=== PATIENT | female | born 1940 | race Two or more races ===

== ENCOUNTER 2024-03-30 11:17 | Inpatient (IN) | payer MEDICARE ==
[~2024-03-30] VITALS: Ht 167.6 cm; Wt 88.5 kg
--- NOTE | 2024-03-30 11:30 | NUR ---
RECEIVED PT 83 YRS FEMALE WALKING IN [facility] BY FABI Valencia/O FOR BUCK TO [facility] AND GENRALIZED WEEKNESS
--- NOTE | 2024-03-30 11:40 | NUR ---
INSERTED ANG CATHETER G 20 ON LT FOR ARM BLOOD DROW AND SENT TO LAB
--- NOTE | 2024-03-30 11:50 | NUR ---
MOVE SHEET SUBMITTED & CALLED FOR BED.
--- NOTE | 2024-03-30 12:07 | NUR ---
EKG obtained at 1155.
[2024-03-30 12:14] LABS: CARBON DIOXIDE 30 mmol/L (21-32); CHLORIDE 108 mmol/L (98-107); GLUCOSE 93 mg/dL (74-106); POTASSIUM 4.4 mmol/L (3.5-5.1); SODIUM SERUM 143 mmol/L (136-145); UREA NITROGEN, BLOOD 14 mg/dL (7-18)
[2024-03-30 12:18] LABS: BASOPHILS # (AUTO) 0.3 K/uL (0.0-0.2); EOSINOPHILS # (AUTO) 0.1 K/uL (0.0-0.7); EOSINOPHILS % (AUTO) 2.6 % (0.0-6.0); HEMATOCRIT 32 % (33-45); HEMOGLOBIN 10.7 g/dL (11.5-14.8); LYMPHOCYTES # (AUTO) 1.8 K/uL (0.8-4.8); LYMPHOCYTES % (AUTO) 34.2 % (20.0-44.0); MEAN CORPUSCULAR HEMOGLOBIN 29 PG (26.0-33.0); MEAN CORPUSCULAR HGB CONC 33 g/dl (31.0-36.0); MEAN CORPUSCULAR VOLUME 88 fL (82-100); MONOCYTES # (AUTO) 0.4 K/uL (0.1-1.30); NEUTROPHILS # (AUTO) 2.7 K/uL (1.8-8.9); NEUTROPHILS % (AUTO) 50.2 % (43.0-81.0); PLATELET COUNT (AUTO) 200 K/uL (150-450); RED BLOOD CELL COUNT(AUTO) 3.64 MIL/uL (4.0-5.2); RED CELL DISTRIBUTION WIDTH 14.9 % (11.5-15.0); WHITE BLOOD COUNT (AUTO) 5.4 K/uL (4.3-11.0)
[2024-03-30] MEDS ORDERED: AMOX500C2 PO (12:39)
[2024-03-30] MEDS ORDERED: CHLO473M3 MM (12:39)
[2024-03-30] MEDS ORDERED: LOSA25TA27 PO (12:39)
[2024-03-30] MEDS ORDERED: ESCI5TAB PO (12:39)
[2024-03-30] MEDS ORDERED: OMEP40CA21 PO (12:39)
[2024-03-30] MEDS ORDERED: IBUP-1957 PO (12:39)
--- NOTE | 2024-03-30 13:06 | NUR ---
DR.BORM FISHER FOR PT HAD HERE MEDICATION FOM HOME MOTRIN 800MG AND AMOCICILLIN 500MG PG GIVEN BY FABI
--- NOTE | 2024-03-30 14:35 | NUR ---
UA SENT TO LAB
[2024-03-30 15:28] LABS: APPEARANCE,URINE CLEAR (CLEAR); BILIRUBIN,URINE NEGATIVE (NEGATIVE); BLOOD, URINE NEGATIVE Ery/uL (NEGATIVE); COLOR,URINE YELLOW (YELLOW); KETONES,URINE NEGATIVE (NEGATIVE); LEUKOCYTE ESTERASE ,URINE NEGATIVE (NEGATIVE); NITRITE, URINE NEGATIVE (NEGATIVE); PROTEIN,URINE NEGATIVE (NEGATIVE); UGLUCOSE NEGATIVE (NEGATIVE); UROBILINOGEN,URINE 0.2 EU/dL (0.2)
--- NOTE | 2024-03-30 15:41 | NUR ---
ROOM 308-1
--- NOTE | 2024-03-30 16:23 | NUR ---
HAND OFF MATT RN ROOM 308-1
[2024-03-30] MEDS ORDERED: ONDANSETRON HCL/PF 4 MG/2 ML VIAL IVP PRN (16:30)
[2024-03-30] MEDS ORDERED: MAGNESIUM HYDROXIDE 30 ML UDC PO PRN (16:30)
[2024-03-30] MEDS ORDERED: ZOLPIDEM TARTRATE 5 MG TABLET PO PRN (16:30)
[2024-03-30] MEDS ORDERED: MAG HYDROX/AL HYDROX/SIMETH 30 ML UDC PO PRN (16:30)
[2024-03-30] MEDS ORDERED: ACETAMINOPHEN 325 MG TABLET PO PRN (16:30)
[2024-03-30] MEDS ORDERED: Z GUARD REMEDY 4 OZ OINT TP PRN (16:30)
[2024-03-30 17:00] VITALS: BP 183/91; TEMP 97.9; O2SAT 96
--- NOTE | 2024-03-30 17:00 | NUR ---
TO ROOM 308-1 VIA DELBERT RUIZ VS
--- NOTE | 2024-03-30 17:30 | NUR ---
GRIND OPERATOR NOTE ADMITTED THIS 83 Y/O FEMALE PATIENT FROM ER, TRANSPORTED VIA GURNEY, ACCOMPANIED BY ER STAFF, DAUGHTER PAN AND SON JAQUELINE AT BEDSIDE. WITH ADMITTING DIAGNOSIS OF: FAILURE TO THRIVE. PATIENT IS AWAKE, A/O X1, VERBALLY RESPONSIVE AND ABLE TO MAKE NEEDS KNOWN. NO SIGNS OF ACUTE DISTRESS NOTED. ON ROOM AIR, BREATHING EVEN AND UNLABORED. DENIES ANY PAIN AT THIS TIME. NOTED WITH IV ACCESS ON LEFT FOREARM #20G, INTACT AND PATENT, FLUSHES WELL. VITAL SIGNS TAKEN AND RECORDED. ROUTINE ADMISSION CARE PROVIDED. ALL BELONGINGS ACCOUNTED FOR. SAFETY MEASURE IN PLACE. BED IN LOW AND LOCKED POSITION, SIDE RAILS UP X2, CALL LIGHT AND TABLE PLACED WITHIN EASY REACH. PLAN OF CARE ONGOING.
[2024-03-30] MEDS: hydrALAZINE HCL 25 MG TABLET PO PRN (17:57)
[2024-03-30] MEDS: ENOXAPARIN SODIUM 40 MG/0.4 ML DISP.SYRIN SQ SCH (17:58)
[2024-03-30] MEDS ORDERED: hydrALAZINE HCL 25 MG TABLET PO SCH (18:00)
--- NOTE | 2024-03-30 18:55 | NUR ---
RN CLOSING NOTE PATIENT RESTING IN BED. AWAKE. PLEASANTLY CONFUSED. STABLE ON ROOM AIR, BREATHING EVEN AND UNLABORED. DENIES ANY PAIN. IV ACCESS ON LEFT FOREARM #20G, INTACT AND PATENT, SALINE LOCKED. SAFETY MEASURE IN PLACE. BED IN LOW AND LOCKED POSITION, SIDE RAILS UP X2, CALL LIGHT PLACED WITHIN EASY REACH. WILL ENDORSE TO NEXT SHIFT FOR CONTINUITY OF CARE.
--- NOTE | 2024-03-30 19:15 | NUR ---
MS RN OPENING NOTE RECEIVED PT IN BED, A/O X 1-2, CONFUSED. ON ROOM AIR, TOLERATING WELL. NO SIGNS OF DISTRESS NOTED. WITH IV ACCESS ON LEFT FOREARM G#20, SL. SAFETY MEASURES IMPLEMENTED: BED LOCKED AND IN LOWEST POSITION, BED ALARM ON. SIDE RAILS UP, CALL LIGHT AND TABLE WITHIN EASY REACH, WILL CONTINUE PLAN OF CARE.
[2024-03-30 20:00] VITALS: BP 138/82; TEMP 98.6; O2SAT 99
[2024-03-31 06:30] LABS: BASOPHILS # (AUTO) 0.1 K/uL (0.0-0.2); EOSINOPHILS # (AUTO) 0.2 K/uL (0.0-0.7); EOSINOPHILS % (AUTO) 4.7 % (0.0-6.0); HEMATOCRIT 32 % (33-45); HEMOGLOBIN 10.5 g/dL (11.5-14.8); LYMPHOCYTES # (AUTO) 2.2 K/uL (0.8-4.8); LYMPHOCYTES % (AUTO) 42.1 % (20.0-44.0); MEAN CORPUSCULAR HEMOGLOBIN 29 PG (26.0-33.0); MEAN CORPUSCULAR HGB CONC 33 g/dl (31.0-36.0); MEAN CORPUSCULAR VOLUME 88 fL (82-100); MONOCYTES # (AUTO) 0.4 K/uL (0.1-1.30); MONOCYTES % (AUTO) 7.6 % (2.0-12.0); NEUTROPHILS # (AUTO) 2.3 K/uL (1.8-8.9); NEUTROPHILS % (AUTO) 44.6 % (43.0-81.0); PLATELET COUNT (AUTO) 201 K/uL (150-450); RED BLOOD CELL COUNT(AUTO) 3.63 MIL/uL (4.0-5.2); WHITE BLOOD COUNT (AUTO) 5.2 K/uL (4.3-11.0)
--- NOTE | 2024-03-31 06:56 | NUR ---
MS RN CLOSING NOTE PT IN BED, A/O X 1-2, CONFUSED. ON ROOM AIR, TOLERATING WELL. NO SIGNS OF DISTRESS NOTED. WITH IV ACCESS ON LEFT FOREARM G#20, SL. SAFETY MEASURES MAINTAINED: BED LOCKED AND IN LOWEST POSITION, BED ALARM ON. SIDE RAILS UP, CALL LIGHT AND TABLE WITHIN EASY REACH, WILL ENDORSE TO AM SHIFT NURSE FOR GAYE.
[2024-03-31 07:00] LABS: CALCIUM, SERUM 8.9 mg/dL (8.5-10.1); CARBON DIOXIDE 28 mmol/L (21-32); CHLORIDE 108 mmol/L (98-107); CREATININE 0.9 mg/dL (0.6-1.3); GLUCOSE 90 mg/dL (74-106); MAGNESIUM 2.1 mg/dL (1.8-2.4); PHOSPHORUS 3.8 mg/dL (2.5-4.9); POTASSIUM 3.9 mmol/L (3.5-5.1); SODIUM SERUM 142 mmol/L (136-145); UREA NITROGEN, BLOOD 12 mg/dL (7-18)
--- NOTE | 2024-03-31 07:25 | NUR ---
RN OPENING NOTES RECEIVED PATIENT IN BED, AWAKE, A/O X1, VERBALLY RESPONSIVE AND ABLE TO MAKE NEEDS KNOWN. NO SIGNS OF ACUTE DISTRESS NOTED. ON ROOM AIR, BREATHING EVEN AND UNLABORED. DENIES ANY PAIN OR DISCOMFORT AT THIS TIME. NOTED WITH IV ACCESS ON LEFT FOREARM #20G, INTACT AND PATENT, SALINE LOCKED. SAFETY MEASURE IN PLACE. BED IN LOW AND LOCKED POSITION, SIDE RAILS UP X2, CALL LIGHT AND TABLE PLACED WITHIN EASY REACH. PLAN OF CARE ONGOING.
[2024-03-31 08:00] VITALS: BP_SYST 142; BP_SYST 146; BP_DIAS 81; TEMP 98.8; O2SAT 98
[2024-03-31] MEDS: LOSARTAN POTASSIUM 25 MG TABLET PO SCH (08:15)
[2024-03-31] MEDS: CHLORHEXIDINE GLUCONATE 15 ML UDC MM SCH (08:15)
[2024-03-31] MEDS: AMOXICILLIN TRIHYDRATE 250 MG CAPSULE PO SCH (08:15)
[2024-03-31] MEDS: IBUPROFEN 400 MG TABLET PO SCH (08:15)
[2024-03-31] MEDS: ESCITALOPRAM OXALATE (10 MG) 10 MG TABLET PO SCH (08:15)
[2024-03-31] MEDS: PANTOPRAZOLE 40 MG TABLET.DR PO SCH (08:15)
[2024-03-31] MEDS ORDERED: Medication Not On Formulary EA (Omeprazole 40 MG) PO SCH (09:00)
[2024-03-31 16:00] VITALS: BP 156/89; TEMP 98.4; O2SAT 98
--- NOTE | 2024-03-31 18:43 | NUR ---
RN CLOSING NOTE PATIENT RESTING IN BED. AWAKE. WITH CONFUSION, REALITY AWARENESS PROVIDED NEEDED. NO SIGNS OF ACUTE DISTRESS NOTED. STABLE ON ROOM AIR, BREATHING EVEN AND UNLABORED. DENIED ANY PAIN. IV ACCESS ON LEFT FOREARM #20G, INTACT AND PATENT, SALINE LOCKED. ALL DUE MEDS GIVEN, TOLERATED WELL. SAFETY MEASURE MAINTAINED. BED IN LOW AND LOCKED POSITION, SIDE RAILS UP X2, CALL LIGHT PLACED WITHIN EASY REACH. WILL ENDORSE TO NEXT SHIFT FOR CONTINUITY OF CARE.
--- NOTE | 2024-03-31 19:10 | NUR ---
RN OPENING NOTE RECEIVED PATIENT AWAKE, SITTING IN BED, TALKING WITH SON OVER THE PHONE. A/O X1-2,CONFUSED. PATIENT REORIENTED/REDIRECTED NEEDED. STABLE ON ROOM AIR, RESPIRATIONS REGULAR IN RATE AND RHYTHM, NONLABORED. IV ACCESS ON LEFT FOREARM #20G, INTACT AND PATENT, SALINE LOCKED. SAFETY MEASURES MAINTAINED. BED IN LOW AND LOCKED POSITION, SIDE RAILS UP X2, CALL LIGHT PLACED WITHIN REACH.ONGOING PLAN OF CARE.
[2024-03-31 20:00] VITALS: BP 134/77; TEMP 98.2; O2SAT 95
[2024-03-31 21:34] VITALS: BP 134/77; TEMP 98.2; O2SAT 95
--- NOTE | 2024-04-01 06:39 | NUR ---
RN CLOSING NOTE PATIENT AWAKE IN BED. A/O X1-2,CONFUSED.PATIENT REORIENTED/REDIRECTED NEEDED. STABLE ON ROOM AIR, RESPIRATIONS REGULAR IN RATE AND RHYTHM, NONLABORED. IV ACCESS ON LEFT FOREARM #20G, INTACT AND PATENT, SALINE LOCKED. NEEDS ATTENDED. SAFETY MEASURES MAINTAINED. BED IN LOW AND LOCKED POSITION, SIDE RAILS UP X2, CALL LIGHT PLACED WITHIN REACH.ENDORSED TO AM SHIFT FOR GAYE.
[2024-04-01 06:43] LABS: BASOPHILS # (AUTO) 0.1 K/uL (0.0-0.2); BASOPHILS % (AUTO) 1.1 % (0.0-2.0); EOSINOPHILS # (AUTO) 0.2 K/uL (0.0-0.7); EOSINOPHILS % (AUTO) 4.1 % (0.0-6.0); HEMATOCRIT 33 % (33-45); LYMPHOCYTES # (AUTO) 1.8 K/uL (0.8-4.8); LYMPHOCYTES % (AUTO) 32.9 % (20.0-44.0); MEAN CORPUSCULAR HEMOGLOBIN 29 PG (26.0-33.0); MEAN CORPUSCULAR HGB CONC 34 g/dl (31.0-36.0); MEAN CORPUSCULAR VOLUME 88 fL (82-100); MONOCYTES # (AUTO) 0.5 K/uL (0.1-1.30); MONOCYTES % (AUTO) 8.9 % (2.0-12.0); NEUTROPHILS # (AUTO) 2.8 K/uL (1.8-8.9); PLATELET COUNT (AUTO) 218 K/uL (150-450); RED BLOOD CELL COUNT(AUTO) 3.75 MIL/uL (4.0-5.2); WHITE BLOOD COUNT (AUTO) 5.4 K/uL (4.3-11.0)
[2024-04-01 06:56] LABS: CALCIUM, SERUM 9.2 mg/dL (8.5-10.1); CARBON DIOXIDE 28 mmol/L (21-32); CHLORIDE 110 mmol/L (98-107); GLUCOSE 96 mg/dL (74-106); MAGNESIUM 2.4 mg/dL (1.8-2.4); PHOSPHORUS 4.7 mg/dL (2.5-4.9); POTASSIUM 4.4 mmol/L (3.5-5.1); SODIUM SERUM 146 mmol/L (136-145); UREA NITROGEN, BLOOD 27 mg/dL (7-18)
--- NOTE | 2024-04-01 07:09 | NUR ---
MS RN OPENING NOTES RECEIVED PATIENT IN HER ROOM AND WALKING AROUND HER BED. A/O X1-2- CONFUSED AND FORGETFUL. ABLE TO MAKE NEEDS KNOWN. ON ROOM AIR, TOLERATING WELL. NO SOB, BREATHING EVEN AND UNLABORED. WITH IV ACCESS ON LEFT FOREARM #20G-SALINE LOCKED; INTACT , PATENT AND FLUSHES WELL. PATIENT IS BRP. PROVIDED RE-ORIENTATION DURING INITIAL ENCOUNTER PATIENT SAID "CAN I GO UPSTAIRS ?". PATIENT DENIES PAIN AT THIS TIME. SAFETY MEASURES IN PLACE. BED IN LOW AND LOCKED POSITION. CALL LIGHT AND TABLE WITHIN EASY REACH. SIDE RAILS UP X2. WILL CONTINUE WITH PLAN OF CARE.
[2024-04-01 08:00] VITALS: BP 167/89; TEMP 98.4; O2SAT 95
[2024-04-01 08:25] VITALS: BP 167/89; TEMP 98.4; O2SAT 96
[2024-04-01 09:00] VITALS: BP 142/84
--- NOTE | 2024-04-01 16:05 | NUR ---
RN NOTE PATIENT'S BLOOD PRESSURE IS 160/91mmHg. HYDRALAZINE 25MG TABLET GIVEN PRN MEDICATION FOR HYPERTENSION.
[2024-04-01 16:06] VITALS: BP 160/91; TEMP 98.2; O2SAT 95
[2024-04-01 16:45] VITALS: BP 142/81
--- NOTE | 2024-04-01 18:50 | NUR ---
MS RN CLOSING NOTES PATIENT SITTING IN HER BED. A/O X1-2- CONFUSED AND FORGETFUL. WAS ABLE TO MAKE NEEDS KNOWN. ON ROOM AIR, TOLERATED WELL. NO SOB, BREATHING EVEN AND UNLABORED. WITH IV ACCESS ON LEFT FOREARM #20G-SALINE LOCKED; INTACT , PATENT AND FLUSHES WELL. PATIENT IS BRP. RE-ORIENTATION RENDERED DURING THE SHIFT. DUE MEDS GIVEN. NURSING CARE RENDERED. SAFETY MEASURES IMPLEMENTED. BED IN LOW AND LOCKED POSITION. CALL LIGHT AND TABLE WITHIN EASY REACH. SIDE RAILS UP X2. WILL ENDORSE TO WORKERS COMPENSATION ATTORNEY NURSE FOR CONTINUITY OF CARE.
--- NOTE | 2024-04-01 19:05 | NUR ---
MS RN OPENING NOTE RECEIVED PATIENT LYING IN BED. A/O X1-2- CONFUSED AND FORGETFUL, NEEDS REDIRECTION/RE-ORIENTATION. PT IS ABLE TO MAKE NEEDS KNOWN. STABLE ON ROOM AIR, NO SOB, BREATHING EVEN AND UNLABORED. IV ACCESS ON LEFT FOREARM #20G, INTACT, PATENT AND SALINE LOCKED. PATIENT IS BRP. SAFETY MEASURES IMPLEMENTED. BED IN LOW AND LOCKED POSITION. CALL LIGHT AND TABLE WITHIN REACH. SIDE RAILS UP X2. ONGOING PLAN OF CARE.
[2024-04-01 20:00] VITALS: BP 127/71; TEMP 98.4; O2SAT 96
[2024-04-02 06:49] LABS: BASOPHILS # (AUTO) 0.1 K/uL (0.0-0.2); BASOPHILS % (AUTO) 1.5 % (0.0-2.0); EOSINOPHILS # (AUTO) 0.2 K/uL (0.0-0.7); EOSINOPHILS % (AUTO) 3.7 % (0.0-6.0); HEMATOCRIT 33 % (33-45); HEMOGLOBIN 10.7 g/dL (11.5-14.8); LYMPHOCYTES # (AUTO) 1.9 K/uL (0.8-4.8); LYMPHOCYTES % (AUTO) 37.2 % (20.0-44.0); MEAN CORPUSCULAR HEMOGLOBIN 29 PG (26.0-33.0); MEAN CORPUSCULAR HGB CONC 33 g/dl (31.0-36.0); MEAN CORPUSCULAR VOLUME 87 fL (82-100); MONOCYTES # (AUTO) 0.4 K/uL (0.1-1.30); NEUTROPHILS # (AUTO) 2.5 K/uL (1.8-8.9); NEUTROPHILS % (AUTO) 49.6 % (43.0-81.0); PLATELET COUNT (AUTO) 205 K/uL (150-450); RED BLOOD CELL COUNT(AUTO) 3.74 MIL/uL (4.0-5.2); RED CELL DISTRIBUTION WIDTH 14.3 % (11.5-15.0)
--- NOTE | 2024-04-02 06:50 | NUR ---
MS RN CLOSING NOTE PATIENT AWAKE IN BED. A/O X1-2- CONFUSED AND FORGETFUL. PT IS ABLE TO MAKE NEEDS KNOWN. STABLE ON ROOM AIR, NO SOB, BREATHING EVEN AND UNLABORED. IV ACCESS ON LEFT FOREARM #20G-SALINE LOCKED; INTACT , PATENT. PATIENT IS AMBULATORY. SAFETY MEASURESMAINTAINED: BED IN LOW AND LOCKED POSITION. CALL LIGHT AND TABLE WITHIN REACH. SIDE RAILS UP X2. ENDORSED TO AM SHIFT FOR GAYE.
[2024-04-02 07:08] LABS: CALCIUM, SERUM 8.7 mg/dL (8.5-10.1); CARBON DIOXIDE 24 mmol/L (21-32); CHLORIDE 109 mmol/L (98-107); CREATININE 0.8 mg/dL (0.6-1.3); GLUCOSE 97 mg/dL (74-106); MAGNESIUM 2.1 mg/dL (1.8-2.4); PHOSPHORUS 4.1 mg/dL (2.5-4.9); POTASSIUM 3.7 mmol/L (3.5-5.1); SODIUM SERUM 144 mmol/L (136-145); UREA NITROGEN, BLOOD 22 mg/dL (7-18)
--- NOTE | 2024-04-02 07:10 | NUR ---
MS RN OPENING NOTES RECEIVED PATIENT IN HER ROOM AND SITTING AT THE CHAIR AT BEDSIDE. A/O X1-2- CONFUSED AND FORGETFUL. ABLE TO MAKE NEEDS KNOWN. ON ROOM AIR, TOLERATING WELL. NO SOB, BREATHING EVEN AND UNLABORED. WITH IV ACCESS ON LEFT FOREARM #20G-SALINE LOCKED; INTACT , PATENT AND FLUSHES WELL. PATIENT IS BRP. PROVIDED RE-ORIENTATION DURING BEDSIDE REPORTING. PATIENT DENIES PAIN AT THIS TIME. SAFETY MEASURES IN PLACE. BED IN LOW AND LOCKED POSITION. CALL LIGHT AND TABLE WITHIN EASY REACH. SIDE RAILS UP X2. WILL CONTINUE WITH PLAN OF CARE.
[2024-04-02 08:00] VITALS: BP 157/86; TEMP 98.6; O2SAT 97
[2024-04-02 15:40] VITALS: BP 153/75
--- NOTE | 2024-04-02 15:53 | NUR ---
VESSEL SPECIALIST NOTES PATIENT WAS SEEN AND ORDERED FOR DISCHARGE BY DR. BAHENA. PATIENT WILL BE DISCHARGE TO [facility]. PATIENT IS A/O X1-2. NO SIGNS OF ACUTE DISTRESS NOTED. BIJAN PERLA SIGNED THE DISCHARGE FORM. BELONGINGS WERE ACCOUNTED FOR, SIGNED BY BIJAN PERLA AND FILED TO CHART [facility]. NAME WRISTBAND AND IV ACCESS WERE REMOVED. GAVE REPORT TO JOSETTE VALE OD [facility] VIA TELEPHONE AT [phone]. PATIENT WAS PICKED UP BY THE EMT AND LEFT THE UNIT IN STABLE CONDITION. CHARGE NURSE LEAH AND MADE AWARE OF THE DISCHARGE.
== END 2024-04-02 15:40 | DRG 641 ==
LOC: ER 11:32 → MED 16:55
PROVIDERS: ADMIT Student in an Organized Health Care Education/Training Program; ATTEND Student in an Organized Health Care Education/Training Program
DX: R62.7 Adult failure to thrive (principal); G93.49 Other encephalopathy; F03.B0 Unspecified dementia, moderate, without behavioral disturbance, psychotic disturbance, mood disturbance, and anxiety; Z68.31 Body mass index [BMI] 31.0-31.9, adult; I10 Essential (primary) hypertension; D64.9 Anemia, unspecified; Z98.818 Other dental procedure status
CPT/HCPCS: 36415; 71045-TC; 80048-TC; 83735-TC; 84100-TC; 84443-TC; 85025-TC; 87086-TC; 97116-TC; G0378; J1650

== ENCOUNTER 2024-06-08 12:57 | Inpatient (IN) | payer MEDICARE, OTHER ==
[~2024-06-08] VITALS: Ht 170.2 cm; Wt 83.9 kg
[~2024-06-08 12:57] MED LIST: AMOX500C2 PO; CHLO473M3 MM; ESCI5TAB PO; IBUP-1957 PO; LOSA25TA27 PO; OMEP40CA21 PO
[2024-06-08 13:59] LABS: BASOPHILS # (AUTO) 0.1 K/uL (0.0-0.2); BASOPHILS % (AUTO) 1.1 % (0.0-2.0); EOSINOPHILS # (AUTO) 0.1 K/uL (0.0-0.7); EOSINOPHILS % (AUTO) 0.8 % (0.0-6.0); HEMATOCRIT 36 % (33-45); HEMOGLOBIN 11.5 g/dL (11.5-14.8); LYMPHOCYTES # (AUTO) 1.9 K/uL (0.8-4.8); MEAN CORPUSCULAR HEMOGLOBIN 28 PG (26.0-33.0); MEAN CORPUSCULAR HGB CONC 32 g/dl (31.0-36.0); MEAN CORPUSCULAR VOLUME 87 fL (82-100); MONOCYTES # (AUTO) 0.9 K/uL (0.1-1.30); MONOCYTES % (AUTO) 6.6 % (2.0-12.0); NEUTROPHILS # (AUTO) 9.9 K/uL (1.8-8.9); NEUTROPHILS % (AUTO) 76.5 % (43.0-81.0); RED BLOOD CELL COUNT(AUTO) 4.11 MIL/uL (4.0-5.2)
[2024-06-08 14:00] LABS: CALCIUM, SERUM 8.8 mg/dL (8.5-10.1); CARBON DIOXIDE 29 mmol/L (21-32); CHLORIDE 106 mmol/L (98-107); GLUCOSE 105 mg/dL (74-106); POTASSIUM 3.5 mmol/L (3.5-5.1); SODIUM SERUM 144 mmol/L (136-145); UREA NITROGEN, BLOOD 13 mg/dL (7-18)
[2024-06-08 14:13] LABS: LACTIC ACID 2.5 mmol/L (0.4-2.0)
[2024-06-08] MEDS ORDERED: ACET-868 PO (14:53)
[2024-06-08] MEDS ORDERED: MIRT7.5T10 PO (14:53)
[2024-06-08] MEDS ORDERED: DIVA125C5 PO (14:53)
[2024-06-08] MEDS ORDERED: MAGN400O6 PO (14:53)
[2024-06-08] MEDS ORDERED: ALBU5SOL7 IH (14:53)
[2024-06-08] MEDS ORDERED: NA P133E RC (14:53)
[2024-06-08] MEDS ORDERED: BISA10SU11 RC (14:53)
[2024-06-08] MEDS ORDERED: MAG-5 PO (14:53)
[2024-06-08] MEDS ORDERED: CEFTRIAXONE 1GM BAG (ER ONLY) 50 ML IV ONE (15:00)
[2024-06-08] MEDS ORDERED: hydrALAZINE HCL IV 20 MG VIAL IV PRN (15:00)
[2024-06-08] MEDS ORDERED: AZITHROMYCIN 500 MG in IV D5W 250 ML IV ONE (15:00)
[2024-06-08] MEDS ORDERED: ONDANSETRON HCL/PF 4 MG/2 ML VIAL IVP PRN (15:00)
[2024-06-08] MEDS ORDERED: ASPIRIN 81 MG TAB.CHEW PO ONE (15:00)
[2024-06-08] MEDS ORDERED: IV NS 0.9% 1,000 ML BAG IV ONE ×2 (15:00)
[2024-06-08] MEDS ORDERED: ACETAMINOPHEN 325 MG TABLET PO PRN (15:00)
[2024-06-08] MEDS ORDERED: MORPHINE SULFATE INJ 2 MG/ML DISP.SYRIN IV PRN (15:00)
[2024-06-08 16:00] VITALS: BP 147/85; TEMP 98.8; O2SAT 98
[2024-06-08 16:34] LABS: BILIRUBIN,DIRECT 0.2 mg/dL (0.0-0.2); BILIRUBIN,TOTAL 1.3 mg/dL (0.2-1.0)
[2024-06-08 16:52] LABS: LACTIC ACID REFLEX 2.2 mmol/L (0.4-1.9)
[2024-06-08 19:00] LABS: PLATELET COUNT (AUTO) 113 K/uL (150-450)
[2024-06-08 20:00] VITALS: BP 141/80; TEMP 97.9; O2SAT 95; O2SAT 97
[2024-06-08] MEDS: MIRTAZAPINE 15 MG TABLET PO SCH (21:29)
[2024-06-08] MEDS: HEPARIN SODIUM, PORCINE 5000 UNITS/1 ML VIAL SQ SCH (21:30)
[2024-06-09] VITALS: BP 141/77; TEMP 98.6; O2SAT 95; O2SAT 96
[2024-06-09 08:00] VITALS: BP 140/99; TEMP 98.6; O2SAT 96
[2024-06-09] MEDS: VALSARTAN 80 MG TABLET PO SCH (08:59)
[2024-06-09] MEDS: DIVALPROEX SODIUM 125 MG CAP.SPRINK PO SCH (08:59)
[2024-06-09] MEDS: PANTOPRAZOLE 40 MG TABLET.DR PO SCH (08:59)
[2024-06-09] MEDS: ESCITALOPRAM OXALATE (10 MG) 10 MG TABLET PO SCH (09:00)
[2024-06-09] MEDS ORDERED: LOSARTAN POTASSIUM 25 MG TABLET PO SCH (09:00)
[2024-06-09 10:08] LABS: BASOPHILS # (AUTO) 0.1 K/uL (0.0-0.2); BASOPHILS % (AUTO) 0.9 % (0.0-2.0); EOSINOPHILS # (AUTO) 0.2 K/uL (0.0-0.7); EOSINOPHILS % (AUTO) 2.6 % (0.0-6.0); HEMATOCRIT 35 % (33-45); HEMOGLOBIN 11.6 g/dL (11.5-14.8); LYMPHOCYTES # (AUTO) 2.4 K/uL (0.8-4.8); LYMPHOCYTES % (AUTO) 30.9 % (20.0-44.0); MEAN CORPUSCULAR HEMOGLOBIN 28 PG (26.0-33.0); MEAN CORPUSCULAR HGB CONC 33 g/dl (31.0-36.0); MEAN CORPUSCULAR VOLUME 87 fL (82-100); MONOCYTES # (AUTO) 0.5 K/uL (0.1-1.30); MONOCYTES % (AUTO) 5.8 % (2.0-12.0); NEUTROPHILS # (AUTO) 4.6 K/uL (1.8-8.9); NEUTROPHILS % (AUTO) 59.8 % (43.0-81.0); PLATELET COUNT (AUTO) 220 K/uL (150-450); RED BLOOD CELL COUNT(AUTO) 4.08 MIL/uL (4.0-5.2); WHITE BLOOD COUNT (AUTO) 7.8 K/uL (4.3-11.0)
[2024-06-09 10:28] LABS: ALANINE AMINOTRANSFERASE 24 U/L (12-78); ALBUMIN 3.3 g/dL (3.4-5.0); ALKALINE PHOSPHATASE 96 U/L (46-116); ASPARTATE AMINOTRANSFERASE 35 U/L (15-37); BILIRUBIN,TOTAL 1.1 mg/dL (0.2-1.0); CALCIUM, SERUM 8.9 mg/dL (8.5-10.1); CARBON DIOXIDE 34 mmol/L (21-32); CHLORIDE 107 mmol/L (98-107); CREATININE 0.8 mg/dL (0.6-1.3); GLUCOSE 109 mg/dL (74-106); MAGNESIUM 2.4 mg/dL (1.8-2.4); PHOSPHORUS 3.5 mg/dL (2.5-4.9); POTASSIUM 3.9 mmol/L (3.5-5.1); SODIUM SERUM 144 mmol/L (136-145); TOTAL PROTEIN, SERUM 7.3 g/dL (6.4-8.2); UREA NITROGEN, BLOOD 20 mg/dL (7-18)
[2024-06-09 16:00] VITALS: BP 143/84; TEMP 97.2; O2SAT 99
[2024-06-09 20:00] VITALS: BP 139/85; TEMP 97.8; O2SAT 98
[2024-06-10 07:00] VITALS: BP 145/91; TEMP 98.6; O2SAT 98
[2024-06-10 12:00] VITALS: BP 130/93; TEMP 98.4; O2SAT 98
[2024-06-10] MEDS: METOPROLOL TARTRATE 50 MG TABLET PO SCH (12:30)
[2024-06-10 20:00] VITALS: BP 158/100; TEMP 98; O2SAT 98
[2024-06-11] VITALS: BP 137/75; TEMP 98.2; O2SAT 98
[2024-06-11 07:18] LABS: CALCIUM, SERUM 8.9 mg/dL (8.5-10.1); CARBON DIOXIDE 30 mmol/L (21-32); CHLORIDE 107 mmol/L (98-107); CREATININE 0.7 mg/dL (0.6-1.3); GLUCOSE 89 mg/dL (74-106); POTASSIUM 4.2 mmol/L (3.5-5.1); SODIUM SERUM 144 mmol/L (136-145); UREA NITROGEN, BLOOD 16 mg/dL (7-18)
[2024-06-11 07:24] LABS: BASOPHILS # (AUTO) 0.1 K/uL (0.0-0.2); BASOPHILS % (AUTO) 0.8 % (0.0-2.0); EOSINOPHILS # (AUTO) 0.4 K/uL (0.0-0.7); EOSINOPHILS % (AUTO) 5.5 % (0.0-6.0); HEMATOCRIT 34 % (33-45); HEMOGLOBIN 11.2 g/dL (11.5-14.8); LYMPHOCYTES # (AUTO) 2.3 K/uL (0.8-4.8); MEAN CORPUSCULAR HEMOGLOBIN 29 PG (26.0-33.0); MEAN CORPUSCULAR HGB CONC 33 g/dl (31.0-36.0); MEAN CORPUSCULAR VOLUME 88 fL (82-100); MONOCYTES # (AUTO) 0.7 K/uL (0.1-1.30); MONOCYTES % (AUTO) 10.1 % (2.0-12.0); NEUTROPHILS # (AUTO) 3.1 K/uL (1.8-8.9); NEUTROPHILS % (AUTO) 47.6 % (43.0-81.0); PLATELET COUNT (AUTO) 198 K/uL (150-450); RED BLOOD CELL COUNT(AUTO) 3.88 MIL/uL (4.0-5.2); RED CELL DISTRIBUTION WIDTH 14.7 % (11.5-15.0); WHITE BLOOD COUNT (AUTO) 6.5 K/uL (4.3-11.0)
[2024-06-11 08:00] VITALS: BP 156/96; TEMP 98.2; O2SAT 98
[2024-06-11] MEDS ORDERED: NITROGLYCERIN 0.4 MG/TAB BOTTLE ONE (10:45)
[2024-06-11] MEDS ORDERED: METOPROLOL TARTRATE INJ 5 MG/5 ML AMPUL ONE (10:45)
[2024-06-11] MEDS ORDERED: IOHEXOL-350 100 ML VIAL IV ONE (10:45)
[2024-06-11] MEDS ORDERED: CT SWABBABLE VALVE TRANS SET 1 EA INFUS.SET MC ONE (10:46)
[2024-06-11] MEDS ORDERED: IV NS 0.9% 250 ML IV ONE (10:46)
[2024-06-11] MEDS ORDERED: METOPROLOL TARTRATE INJ 5 MG/5 ML AMPUL IVP PRN (11:00)
[2024-06-11] MEDS: NITROGLYCERIN 0.4 MG/TAB BOTTLE SL ONE (11:05)
[2024-06-11 12:00] VITALS: BP 141/62; TEMP 98.4; O2SAT 96
[2024-06-11 16:00] VITALS: BP 142/81; TEMP 98; O2SAT 97
[2024-06-11 17:25] VITALS: BP 142/81
== END 2024-06-11 17:55 | DRG 281 ==
LOC: ER 13:00 → TELE 16:34
PROVIDERS: ADMIT Internal Medicine; ATTEND Internal Medicine
DX: I51.4 Myocarditis, unspecified (principal); E87.20 Acidosis, unspecified; I21.A1 Myocardial infarction type 2; I50.32 Chronic diastolic (congestive) heart failure; I11.0 Hypertensive heart disease with heart failure; E80.4 Gilbert syndrome; F03.90 Unspecified dementia, unspecified severity, without behavioral disturbance, psychotic disturbance, mood disturbance, and anxiety; D72.829 Elevated white blood cell count, unspecified; Z20.822 Contact with and (suspected) exposure to COVID-19
CPT/HCPCS: 36415; 71045-TC; 75574; 80048-TC; 80053-TC; 80164-TC; 82247-TC; 82248-TC; 83605-TC; 83735-TC; 84100-TC; 84484-TC; 85025-TC; 87040-TC; 87081-TC; 87086-TC; 93307-TC; A4223; G0378; J1644; J3490; J7040; J7050; Q9967

== ENCOUNTER 2024-07-21 00:43 | Inpatient (IN) | payer MEDICARE, OTHER ==
[~2024-07-21] VITALS: Ht 157.5 cm; Wt 53.5 kg
[~2024-07-21 00:43] MED LIST changes: +ACET-868 PO; +ALBU5SOL7 IH; -AMOX500C2 PO; +BISA10SU11 RC; -CHLO473M3 MM; +DIVA125C5 PO; -IBUP-1957 PO; +MAG-5 PO; +MAGN400O6 PO; +MIRT7.5T10 PO; +NA P133E RC
[2024-07-21 02:10] LABS: BASOPHILS # (AUTO) 0.1 K/uL (0.0-0.2); EOSINOPHILS # (AUTO) 0.3 K/uL (0.0-0.7); EOSINOPHILS % (AUTO) 4.3 % (0.0-6.0); HEMATOCRIT 33 % (33-45); LYMPHOCYTES # (AUTO) 1.6 K/uL (0.8-4.8); LYMPHOCYTES % (AUTO) 26.9 % (20.0-44.0); MEAN CORPUSCULAR HEMOGLOBIN 28 PG (26.0-33.0); MEAN CORPUSCULAR HGB CONC 33 g/dl (31.0-36.0); MEAN CORPUSCULAR VOLUME 86 fL (82-100); MONOCYTES # (AUTO) 0.5 K/uL (0.1-1.30); MONOCYTES % (AUTO) 9.2 % (2.0-12.0); NEUTROPHILS # (AUTO) 3.4 K/uL (1.8-8.9); NEUTROPHILS % (AUTO) 58.6 % (43.0-81.0); PLATELET COUNT (AUTO) 159 K/uL (150-450); RED BLOOD CELL COUNT(AUTO) 3.87 MIL/uL (4.0-5.2); RED CELL DISTRIBUTION WIDTH 14.9 % (11.5-15.0); WHITE BLOOD COUNT (AUTO) 5.8 K/uL (4.3-11.0)
[2024-07-21 02:21] LABS: CARBON DIOXIDE 25 mmol/L (21-32); CHLORIDE 109 mmol/L (98-107); CREATININE 0.8 mg/dL (0.6-1.3); GLUCOSE 100 mg/dL (74-106); POTASSIUM 3.6 mmol/L (3.5-5.1); SODIUM SERUM 145 mmol/L (136-145); UREA NITROGEN, BLOOD 31 mg/dL (7-18)
[2024-07-21 02:27] LABS: ALANINE AMINOTRANSFERASE 28 U/L (12-78); ALBUMIN 3.5 g/dL (3.4-5.0); ALCOHOL, BLOOD < 3 mg/dL (0-10); ALKALINE PHOSPHATASE 81 U/L (46-116); ASPARTATE AMINOTRANSFERASE 34 U/L (15-37); BILIRUBIN,DIRECT 0.1 mg/dL (0.0-0.2); BILIRUBIN,TOTAL 0.5 mg/dL (0.2-1.0); TOTAL PROTEIN, SERUM 7.1 g/dL (6.4-8.2)
[2024-07-21 02:28] LABS: ACETAMINOPHEN <10 ug/ml (10-30); SALICYLATE 0.3 mg/dL (2.8-20.0)
[2024-07-21] MEDS ORDERED: GUAI100S9 PO (03:38)
[2024-07-21] MEDS ORDERED: OXCA150T13 PO ×2 (03:38)
[2024-07-21 05:00] VITALS: BP 118/76; TEMP 97.9; O2SAT 93
[2024-07-21] MEDS ORDERED: ACETAMINOPHEN 325 MG TABLET PO PRN (05:30)
[2024-07-21] MEDS ORDERED: MAGNESIUM HYDROXIDE 30 ML UDC PO PRN (05:30)
[2024-07-21] MEDS ORDERED: MAG HYDROX/AL HYDROX/SIMETH 30 ML UDC PO PRN (05:30)
[2024-07-21] MEDS ORDERED: TEMAZEPAM 7.5 MG CAPSULE PO PRN (05:30)
[2024-07-21] MEDS: BLOOD SUGAR DIAGNOSTIC 1 EACH STRIP IN ONE (06:10)
[2024-07-21 08:00] VITALS: BP 130/91; TEMP 97.7; O2SAT 94
[2024-07-21] MEDS: LORAZEPAM 0.5 MG TABLET PO PRN ×2 (10:32→23:37)
[2024-07-21] MEDS: OLANZAPINE 10 MG VIAL IM ONE ×2 (11:36→16:24)
[2024-07-21] MEDS: LORAZEPAM INJ 2 MG/ML VIAL IM STA (12:01)
[2024-07-21] MEDS: OXCARBAZEPINE 150 MG TABLET PO SCH ×2 (12:30→22:12)
[2024-07-21 16:00] VITALS: BP 136/76; TEMP 97.7; O2SAT 94
[2024-07-21] MEDS ORDERED: OLANZAPINE 10 MG VIAL IM ONE (16:30)
[2024-07-21 21:17] VITALS: BP 150/74; TEMP 98.2; O2SAT 96
[2024-07-22] MEDS ORDERED: BISACODYL SUPP (10 MG) 10 MG/SUPP.RECT SUPP.RECT RC PRN (06:00)
[2024-07-22 08:00] VITALS: BP 153/95; TEMP 97.9; O2SAT 96
[2024-07-22 08:09] LABS: BASOPHILS % (AUTO) 0.7 % (0.0-2.0); EOSINOPHILS # (AUTO) 0.2 K/uL (0.0-0.7); EOSINOPHILS % (AUTO) 3.8 % (0.0-6.0); HEMATOCRIT 37 % (33-45); HEMOGLOBIN 12.1 g/dL (11.5-14.8); LYMPHOCYTES # (AUTO) 1.8 K/uL (0.8-4.8); LYMPHOCYTES % (AUTO) 31.4 % (20.0-44.0); MEAN CORPUSCULAR HEMOGLOBIN 29 PG (26.0-33.0); MEAN CORPUSCULAR HGB CONC 33 g/dl (31.0-36.0); MEAN CORPUSCULAR VOLUME 87 fL (82-100); MONOCYTES # (AUTO) 0.4 K/uL (0.1-1.30); MONOCYTES % (AUTO) 7.2 % (2.0-12.0); NEUTROPHILS # (AUTO) 3.2 K/uL (1.8-8.9); NEUTROPHILS % (AUTO) 56.9 % (43.0-81.0); PLATELET COUNT (AUTO) 101 K/uL (150-450); RED BLOOD CELL COUNT(AUTO) 4.23 MIL/uL (4.0-5.2); RED CELL DISTRIBUTION WIDTH 15.2 % (11.5-15.0); WHITE BLOOD COUNT (AUTO) 5.6 K/uL (4.3-11.0)
[2024-07-22] MEDS ORDERED: ALBUTEROL FS 2.5 MG/3 ML VIAL.NEB NEB PRN (08:30)
[2024-07-22] MEDS: PANTOPRAZOLE 40 MG TABLET.DR PO SCH (08:35)
[2024-07-22] MEDS: LOSARTAN POTASSIUM 25 MG TABLET PO SCH (08:36)
[2024-07-22 08:49] LABS: CALCIUM, SERUM 9.2 mg/dL (8.5-10.1); CREATININE 0.7 mg/dL (0.6-1.3); POTASSIUM 3.4 mmol/L (3.5-5.1)
[2024-07-22 16:00] VITALS: BP 158/90; TEMP 97.6; O2SAT 96
[2024-07-22 21:03] VITALS: BP 147/85; TEMP 98; O2SAT 95
[2024-07-22] MEDS: TEMAZEPAM 7.5 MG CAPSULE PO PRN (21:44)
[2024-07-23 08:00] VITALS: BP 121/84; TEMP 98.7; O2SAT 96
[2024-07-23 16:00] VITALS: BP 132/77; TEMP 97.4; O2SAT 91
[2024-07-23 20:43] VITALS: BP 108/75; TEMP 97.8; O2SAT 94
[2024-07-24 08:00] VITALS: BP 119/84; TEMP 98.6; O2SAT 98
[2024-07-24] MEDS: LORAZEPAM INJ 2 MG/ML VIAL IM PRN (13:40)
[2024-07-24 16:00] VITALS: BP 129/87; TEMP 98.6; O2SAT 98
[2024-07-24 16:57] LABS: BASOPHILS # (AUTO) 0.1 K/uL (0.0-0.2); BASOPHILS % (AUTO) 0.8 % (0.0-2.0); EOSINOPHILS # (AUTO) 0.2 K/uL (0.0-0.7); HEMATOCRIT 34 % (33-45); HEMOGLOBIN 11.5 g/dL (11.5-14.8); LYMPHOCYTES # (AUTO) 1.9 K/uL (0.8-4.8); MEAN CORPUSCULAR HEMOGLOBIN 29 PG (26.0-33.0); MEAN CORPUSCULAR HGB CONC 34 g/dl (31.0-36.0); MEAN CORPUSCULAR VOLUME 86 fL (82-100); MONOCYTES # (AUTO) 0.7 K/uL (0.1-1.30); MONOCYTES % (AUTO) 8.5 % (2.0-12.0); NEUTROPHILS # (AUTO) 5.8 K/uL (1.8-8.9); NEUTROPHILS % (AUTO) 66.7 % (43.0-81.0); PLATELET COUNT (AUTO) 135 K/uL (150-450); RED BLOOD CELL COUNT(AUTO) 3.97 MIL/uL (4.0-5.2); RED CELL DISTRIBUTION WIDTH 14.9 % (11.5-15.0); WHITE BLOOD COUNT (AUTO) 8.7 K/uL (4.3-11.0)
[2024-07-24 20:09] VITALS: BP 116/66; TEMP 98.3; O2SAT 96
[2024-07-24] MEDS: OXCARBAZEPINE 150 MG TABLET PO SCH (21:34)
[2024-07-24 22:51] LABS: APPEARANCE,URINE CLEAR (CLEAR); BILIRUBIN,URINE NEGATIVE (NEGATIVE); BLOOD, URINE NEGATIVE Ery/uL (NEGATIVE); COLOR,URINE YELLOW (YELLOW); KETONES,URINE NEGATIVE (NEGATIVE); LEUKOCYTE ESTERASE ,URINE TRACE (NEGATIVE); NITRITE, URINE NEGATIVE (NEGATIVE); PROTEIN,URINE TRACE mg/dl (NEGATIVE); UGLUCOSE NEGATIVE (NEGATIVE); UROBILINOGEN,URINE 0.2 EU/dL (0.2)
[2024-07-24 23:03] LABS: ADD URINE CULTURE NO; BACTERIA,URINE Rare /HPF (None Seen); CALCIUM OXALATE CRYSTALS,UR Few /HPF (None Seen); MUCUS,URINE Few /LPF (None Seen); RBC,URINE NONE SEEN /HPF (0-2); SQUAMOUS EPITHELIAL CELL,UR Few /HPF (None Seen)
[2024-07-24] MEDS: GUAIFENESIN 300 MG/15 ML UDC PO PRN (23:30)
[2024-07-25 08:00] VITALS: BP 145/75; TEMP 98.1; O2SAT 96
[2024-07-25 16:00] VITALS: BP 135/74; TEMP 98.8; O2SAT 96
[2024-07-25 20:00] VITALS: BP 139/80; TEMP 98.6; O2SAT 100
[2024-07-26 08:00] VITALS: BP 125/86; TEMP 97.9; O2SAT 95
[2024-07-26 20:13] VITALS: BP 128/76; TEMP 97.8; O2SAT 94
[2024-07-27 08:00] VITALS: BP_SYST 146; BP_DIAS 85; BP_DIAS 86; TEMP 98.6; O2SAT 95
[2024-07-27] MEDS: DIVALPROEX SODIUM 125 MG TABLET.DR PO SCH (12:31)
[2024-07-27 16:00] VITALS: BP 140/75; TEMP 98.9; O2SAT 95
[2024-07-27 20:00] VITALS: BP 121/70; TEMP 98.7; O2SAT 95
[2024-07-27] MEDS: DIVALPROEX SODIUM 250 MG TABLET.DR PO SCH (21:51)
[2024-07-28 09:32] VITALS: BP 123/80; TEMP 97.9; O2SAT 98
[2024-07-28 13:40] LABS: BASOPHILS % (AUTO) 0.5 % (0.0-2.0); EOSINOPHILS # (AUTO) 0.1 K/uL (0.0-0.7); EOSINOPHILS % (AUTO) 1.5 % (0.0-6.0); HEMATOCRIT 31 % (33-45); HEMOGLOBIN 10.5 g/dL (11.5-14.8); LYMPHOCYTES # (AUTO) 1.6 K/uL (0.8-4.8); LYMPHOCYTES % (AUTO) 16.5 % (20.0-44.0); MEAN CORPUSCULAR HEMOGLOBIN 29 PG (26.0-33.0); MEAN CORPUSCULAR HGB CONC 34 g/dl (31.0-36.0); MEAN CORPUSCULAR VOLUME 85 fL (82-100); MONOCYTES % (AUTO) 10.5 % (2.0-12.0); NEUTROPHILS # (AUTO) 6.9 K/uL (1.8-8.9); PLATELET COUNT (AUTO) 183 K/uL (150-450); RED BLOOD CELL COUNT(AUTO) 3.66 MIL/uL (4.0-5.2); RED CELL DISTRIBUTION WIDTH 14.6 % (11.5-15.0); WHITE BLOOD COUNT (AUTO) 9.7 K/uL (4.3-11.0)
[2024-07-28 13:58] LABS: ALBUMIN 3.4 g/dL (3.4-5.0); BILIRUBIN,TOTAL 0.8 mg/dL (0.2-1.0); CALCIUM, SERUM 9.1 mg/dL (8.5-10.1); CREATININE 0.8 mg/dL (0.6-1.3); POTASSIUM 3.6 mmol/L (3.5-5.1); TOTAL PROTEIN, SERUM 7.7 g/dL (6.4-8.2)
[2024-07-29 08:00] VITALS: BP 121/85; TEMP 98.2; O2SAT 98
[2024-07-29 16:00] VITALS: BP 124/83; TEMP 98.6; O2SAT 99
[2024-07-29 20:55] VITALS: BP 126/88; TEMP 98.6; O2SAT 98
[2024-07-30 08:00] VITALS: BP 124/76; TEMP 97.8; O2SAT 98
[2024-07-30 08:35] VITALS: BP 124/76
== END 2024-07-30 15:25 | DRG 885 ==
LOC: ER 00:50 → GPS 03:45
PROVIDERS: ADMIT Psychiatry & Neurology Psychosomatic Medicine
DX: F29 Unspecified psychosis not due to a substance or known physiological condition (principal); I11.0 Hypertensive heart disease with heart failure; F02.83 Dementia in other diseases classified elsewhere, unspecified severity, with mood disturbance; I50.9 Heart failure, unspecified; E80.4 Gilbert syndrome; K21.9 Gastro-esophageal reflux disease without esophagitis; D64.9 Anemia, unspecified; G30.9 Alzheimer's disease, unspecified; Z79.899 Other long term (current) drug therapy; Z20.822 Contact with and (suspected) exposure to COVID-19; F39 Unspecified mood [affective] disorder
CPT/HCPCS: 36415; 71045-TC; 80048-TC; 80053-TC; 80061-TC; 80076-TC; 81001; 82140-TC; 83735-TC; 85025-TC; 87081-TC; 97112-TC; 97116-TC; 97530-TC; 98960; G0480; J2060; J3490